=== PATIENT | female | born 1980 | race Caucasian/White ===

== ENCOUNTER 2016-12-23 11:33 | Emergency (ER) | payer OTHER ==
[~2016-12-23] VITALS: Ht 157.5 cm; Wt 104.5 kg
[~2016-12-23 11:33] MED LIST: AMIT10TA6 PO; ARIP1TAB5 PO; DEPO150I IM; ESCI20TA PO; FLUT1SPR5 EACH NARE; KLON2TAB PO; LURA40 PO; PHEN37.54 PO; TIZA4TAB PO
[2016-12-23 11:51] VITALS: BP 125/77; PULSE 87; RESP 18; TEMP 97.8; O2SAT 98
[2016-12-23] MEDS ORDERED: LEXA20TA PO (11:51)
[2016-12-23] MEDS ORDERED: ABIL15TA2 PO (11:51)
[2016-12-23] MEDS ORDERED: ADDE30TA PO (11:51)
[2016-12-23] MEDS ORDERED: XANA2TAB2 PO (11:51)
[2016-12-23] MEDS ORDERED: ADDE15TA PO (11:51)
--- NOTE | 2016-12-23 12:51 | PD ---
HPI Chief Complaint: Medication Refill Request Time Seen by Provider: 12:29 Travel History International Travel<30 days: No Contact w/Intl Traveler<30days: No Traveled to known affect area: No History of Present Illness HPI 36-year-old female presents to the emergency room crusting medication refills for Adderall and Lexapro. Patient states she ran out of her medications yesterday. She is also running out of Abilify and Xanax but states she can make them last until she can get in to see her psychiatrist. Patient recently changed insurances and her new insurance is not accepted at her old primary care physician's office. She was going to [facility] but they do not prescribe narcotics and referred her to a psychiatrist who charges $200 per visit. Patient states she cannot afford that. She called a psychiatrist in the area who accepts her insurance (Dr. Farmer) and the earliest they can get her in is January 01. She was told by their office to come to the emergency room. She states if she is not taking her medication she cannot function and is concerned that she will be [place] acted. She has been on them for 17-20 years. 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 Space doses at least 4 to 6 hours if more than once/day dosing. Adderall (Amphetamine-Dextroamphetamine) 30 Mg Tab 30 Mg PO DAILY Avoid late evening doses. Space doses at least 4 to 6 hours if more than once/day dosing. Lexapro (Escitalopram Oxalate) 20 Mg Tab 20 Mg PO DAILY Review of Systems Except as stated in HPI: all other systems reviewed are Neg Physical Exam Narrative GENERAL: Well-nourished, well-developed female in no acute distress. Afebrile. Ambulatory. SKIN: Focused skin assessment warm/dry. HEAD: Normocephalic. EYES: No scleral icterus. No injection or drainage. NECK: Supple, trachea midline. No JVD or lymphadenopathy. CARDIOVASCULAR: Regular rate and rhythm without murmurs, gallops, or rubs. RESPIRATORY: Breath sounds equal bilaterally. No accessory muscle use. PSYCHIATRIC: No delusional thought processes. No hallucinations. Normal affect. Stable mood. Data Data Last Documented VS Vital Signs Date Time Temp Pulse Resp B/P Pulse Ox O2 Delivery O2 Flow Rate FiO2 12/23/16 11:51 97.8 87 18 125/77 98 MDM Medical Decision Making Medical Screen Exam Complete: Yes Emergency Medical Condition: No Medical Record Reviewed: Yes Differential Diagnosis Medication refill, bipolar disorder, mood disorder, depression Narrative Course 36-year-old female presents to the emergency room requesting medication refill of Adderall and Lexapro. States she also needs Abilify and Xanax but states she can go without those medications until she can get into see her psychiatrist. The earliest they can take her is January 01. Patient appears legitimate and there is no concern for drug-seeking behavior however she was informed that it is against emergency room policy to prescribe refill narcotic medications. She was offered refill for prescription of Lexapro but became angry and left. A medical screening exam was performed: At the time of evaluation the presenting medical condition was determined not to be of an emergent nature. The patient was given the option of receiving additional care, such as refill of Lexapro, but declined. Patient was given options for additional community resources from which to obtain care. The Patient Has Been advised to seek medical attention for their presenting complaint. The patient has been advised to return to the ER at any time if an emergent condition develops. Diagnosis Primary Impression: Encounter for medical screening examination Disposition: 01 DISCHARGE HOME Condition: Stable Sharon Suarez Dec 23, 2016 12:51
== END 2016-12-23 12:44 | disposition left against medical advice (07) ==
LOC: PHEFT 11:33
DX: F31.9 Bipolar disorder, unspecified (principal); Z87.19 Personal history of other diseases of the digestive system; Z72.0 Tobacco use; Z79.899 Other long term (current) drug therapy
CPT/HCPCS: 99281

== ENCOUNTER 2017-06-22 11:28 | Emergency (ER) | payer OTHER ==
[~2017-06-22] VITALS: Ht 157.5 cm; Wt 100.0 kg
[~2017-06-22 11:28] MED LIST changes: +ABIL15TA3 PO; +ADDE15TA PO; +ADDE30TA PO; -AMIT10TA6 PO; -ARIP1TAB5 PO; +CLON2TAB PO; -DEPO150I IM; -ESCI20TA PO; -FLUT1SPR5 EACH NARE; -KLON2TAB PO; +LEXA20TA PO; -LURA40 PO; -PHEN37.54 PO; -TIZA4TAB PO
[2017-06-22 11:35] VITALS: BP 116/64; PULSE 64; RESP 16; TEMP 97.8; O2SAT 100
[2017-06-22] MEDS ORDERED: LIDOCAINE HCL 5% OINT 37 GM TUBE TOPICAL ONE (11:45)
[2017-06-22] MEDS ORDERED: TOPA50TA7 PO (11:46)
[2017-06-22] MEDS ORDERED: ALPR2TAB3 PO (11:46)
[2017-06-22] MEDS ORDERED: LIDOCAINE 4% CREAM 5 GM TUBE TOPICAL ONE ×2 (12:00→13:30)
--- NOTE | 2017-06-22 12:03 | PD ---
HPI Chief Complaint: GI Complaint Time Seen by Provider: 11:40 Travel History International Travel<30 days: No Contact w/Intl Traveler<30days: No Traveled to known affect area: No History of Present Illness HPI This is a 36-year-old female who presents to the emergency department feeling like she can't have a bowel movement. She feels like she has stool stuck at her rectum, constant, severe, associated with pain and some bleeding. She has some lower abdominal cramping and some back pain. She says in the past she struggled with constipation and has had to take lactulose. She denies any vomiting. She has had a but that's her only prior abdominal surgery. PFSH Past Medical History Bipolar Disorder: Yes Diminished Hearing: No GERD: Yes Psychiatric: Yes Immunizations Current: Yes Tetanus Vaccination: Unknown Influenza Vaccination: No ?: Not LMP: 05-25-17 Past Surgical History Section: Yes Social History Alcohol Use: No Tobacco Use: Yes (1 pk) Substance Use: Yes (denies today) Allergies-Medications (Allergen,Severity, Reaction): Coded Allergies: *MDRO Multi-Drug Resistant Organism (Unverified Allergy, Unknown, 12/23/16) Acinetobacter lwoffii 2013 Reported Meds & Prescriptions Reported Meds & Active Scripts Active Reported Topamax (Topiramate) 50 Mg Tab 50 Mg PO DAILY Alprazolam 2 Mg Tab 2 Mg PO BID Abilify (Aripiprazole) 15 Mg Tab 15 Mg PO DAILY Adderall (Amphetamine-Dextroamphetamine) 15 Mg Tab 15 Mg PO HS Avoid late evening doses. Space doses at least 4 to 6 hours if more than once/day dosing. Adderall (Amphetamine-Dextroamphetamine) 30 Mg Tab 30 Mg PO DAILY Avoid late evening doses. Space doses at least 4 to 6 hours if more than once/day dosing. Lexapro (Escitalopram Oxalate) 20 Mg Tab 20 Mg PO DAILY Review of Systems Except as stated in HPI: all other systems reviewed are Neg Physical Exam Narrative GENERAL:Well appearing, no acute distress SKIN: Focused skin assessment warm and dry. HEAD: Atraumatic. Normocephalic. EYES: Pupils equal and round. No injection or drainage. ENT: Moist mucous membranes NECK: Trachea midline. CARDIOVASCULAR: Regular rate and rhythm. No murmur appreciated. RESPIRATORY: Clear to auscultation. Breath sounds equal bilaterally. GASTROINTESTINAL: Abdomen soft, non-tender, nondistended. External and internal hemorrhoids evident on exam. Large fecal mass appreciated in the rectum. MUSCULOSKELETAL: No obvious deformities. NEUROLOGICAL: Awake and alert. No obvious cranial nerve deficits. Moving all extremities. PSYCHIATRIC: Appropriate mood and affect; insight and judgment normal. Data Data Last Documented VS Vital Signs Date Time Temp Pulse Resp B/P (MAP) Pulse Ox O2 Delivery O2 Flow Rate FiO2 06/22/17 13:09 88 20 164/82 (109) 99 Room Air 06/22/17 11:35 97.8 Orders Orders Lidocaine 4% Cream (L-M-X 4 Cream) (06/22/17 12:00) Mineral Oil Enema (Fleet Mineral Oil Cathy (06/22/17 13:30) Bisacodyl Supp (Dulcolax Supp) (06/22/17 13:30) Lidocaine 4% Cream (L-M-X 4 Cream) (06/22/17 13:30) MDM Medical Decision Making Medical Screen Exam Complete: Yes Emergency Medical Condition: Yes Differential Diagnosis Fecal impaction, constipation, bowel obstruction Narrative Course This is a 36-year-old female who presents to the emergency department with a fecal impaction. Patient is very anxious. I attempted a manual disimpaction. I was able to remove some stool but the patient did not tolerate it well. She attempted to have a bowel movement in the emergency department but said she couldn't do it. I don't think she has any signs of obstruction. I think the patient will be able to pass this on her own. Patient wants to go home and doesn't want any more intervention. She will be given an enema, suppository and more topical lidocaine to manage this at home. Patient will be discharged. Procedures Procedure Narrative A fecal disimpaction was performed. A small amount of stool was removed digitally from the rectum following application of topical lidocaine. Diagnosis Primary Impression: Fecal impaction in rectum Patient Instructions: General Instructions Additional Instructions: If you develop severe or worsening abdominal pain, fever>100.4, persistent vomiting or inability to eat or drink return to the emergency department immediately. Follow up with your primary care physician in 1-2 days if you're not improved. Scripts Polyethylene Glycol 3350 Powder (Miralax Powder) 17 Gm Powd 17 GM PO DAILY for Constipation, #1 CAN 0 Refills Mix and dissolve one measuring cap-ful (17 grams) in water or juice. Prov: Janny Pfeiffer MD 06/22/17 Disposition: 01 DISCHARGE HOME Condition: Stable Janny Pfeiffer MD Jun 22, 2017 12:03
[2017-06-22 13:09] VITALS: BP 164/82; PULSE 88; RESP 20; O2SAT 99
[2017-06-22] MEDS ORDERED: MINERAL OIL ENEMA 118 ML BTL RECTAL ONE (13:30)
[2017-06-22] MEDS ORDERED: BISACODYL 10 MG SUPP RECTAL ONE (13:30)
[2017-06-22] MEDS ORDERED: MIRA3350 PO (13:30)
== END 2017-06-22 13:45 | disposition home or self-care (01) ==
LOC: PHED 11:28
DX: K56.41 Fecal impaction (principal); K21.9 Gastro-esophageal reflux disease without esophagitis; F17.210 Nicotine dependence, cigarettes, uncomplicated
CPT/HCPCS: 99283

== ENCOUNTER 2017-11-17 23:45 | Emergency (ER) | payer OTHER ==
[~2017-11-17 23:45] MED LIST changes: +ALPR2TAB3 PO; -CLON2TAB PO; +MIRA3350 PO; +TOPA50TA7 PO
[2017-11-18 00:20] VITALS: BP 109/55; PULSE 79; RESP 18; TEMP 98.2; O2SAT 100
[2017-11-18] MEDS ORDERED: CLIN300C5 PO (03:27)
[2017-11-18] MEDS ORDERED: BACT800T5 PO (03:27)
--- NOTE | 2017-11-18 03:29 | PD ---
HPI Chief Complaint: Skin Problem Time Seen by Provider: 03:18 Travel History International Travel<30 days: No Contact w/Intl Traveler<30days: No Traveled to known affect area: No History of Present Illness HPI Examined in the presence of a female nurse. 36-year-old female presents for evaluation of area of redness and pain to the lateral aspect of the right thigh. Symptoms started 2-3 days ago spontaneously. Pain is aching, constant, worse with palpation. Denies any fevers or chills. She reports that she has a history of cellulitis secondary to MRSA in the past and this feels similar. No other complaints. PFSH Past Medical History Bipolar Disorder: Yes Diminished Hearing: No GERD: Yes Psychiatric: Yes Immunizations Current: Yes ?: Not LMP: 10/31/17 Past Surgical History Section: Yes Social History Alcohol Use: No Tobacco Use: Yes (1 pk) Substance Use: Yes (denies today) Allergies-Medications (Allergen,Severity, Reaction): Coded Allergies: *MDRO Multi-Drug Resistant Organism (Unverified Allergy, Unknown, 11/18/17) Acinetobacter lwoffii 2013 Reported Meds & Prescriptions Reported Meds & Active Scripts Active Miralax Powder (Polyethylene Glycol 3350 Powder) 17 Gm Powd 17 Gm PO DAILY Mix and dissolve one measuring cap-ful (17 grams) in water or juice. Reported Topamax (Topiramate) 50 Mg Tab 50 Mg PO DAILY Alprazolam 2 Mg Tab 2 Mg PO BID Abilify (Aripiprazole) 15 Mg Tab 15 Mg PO DAILY Adderall (Amphetamine-Dextroamphetamine) 15 Mg Tab 15 Mg PO HS Avoid late evening doses. Space doses at least 4 to 6 hours if more than once/day dosing. Adderall (Amphetamine-Dextroamphetamine) 30 Mg Tab 30 Mg PO DAILY Avoid late evening doses. Space doses at least 4 to 6 hours if more than once/day dosing. Lexapro (Escitalopram Oxalate) 20 Mg Tab 20 Mg PO DAILY Review of Systems Except as stated in HPI: all other systems reviewed are Neg Physical Exam Narrative GENERAL: Well-developed well-nourished female no acute distress SKIN: Warm and dry. There is an approximately 7 cm in diameter erythema with some central induration on the lateral aspect of the right thigh. There is no fluctuance or drainage. HEAD: Atraumatic. Normocephalic. EYES: Pupils equal and round. No scleral icterus. No injection or drainage. ENT: No nasal bleeding or discharge. Mucous membranes pink and moist. NECK: Trachea midline. No JVD. CARDIOVASCULAR: Regular rate and rhythm. No murmur appreciated. RESPIRATORY: No accessory muscle use. Clear to auscultation. Breath sounds equal bilaterally. GASTROINTESTINAL: Abdomen soft, non-tender, nondistended. Hepatic and splenic margins not palpable. Data Data Last Documented VS Vital Signs Date Time Temp Pulse Resp B/P (MAP) Pulse Ox O2 Delivery O2 Flow Rate FiO2 11/18/17 00:20 98.2 79 18 109/55 (73) 100 Orders Orders Clindamycin (Cleocin) (11/18/17 03:30) Sulfamet-Trimeth Ds 800-160 Mg (Bactrim (11/18/17 03:30) Ed Discharge Order (11/18/17 03:23) [facility] Medical Decision Making Medical Screen Exam Complete: Yes Emergency Medical Condition: Yes Medical Record Reviewed: Yes Differential Diagnosis Cellulitis, abscess, erysipelas, infected cyst Narrative Course Examination is consistent with cellulitis to the right leg. History of MRSA in the past. Patient will be treated with clindamycin and Bactrim. Discussed signs and symptoms that would warrant returning to the emergency room. Stable for discharge. Diagnosis Primary Impression: Cellulitis of right leg Additional Instructions: Medication as prescribed. Warm compresses several times a day 15 minutes at a time. Return for any new or worsening symptoms. Med/Other Pt SpecificInfo: Prescription(s) given Scripts Sulfamethoxazole-Trimethoprim (Bactrim DS) 800-160 Mg Tab 1 TAB PO BID for Infection, #20 TAB 0 Refills Prov: Marisabel Sims MD 11/18/17 Clindamycin (Clindamycin) 300 Mg Cap 300 MG PO TID for Infection for 10 Days, CAP 0 Refills Prov: Marisabel Sims MD 11/18/17 Disposition: 01 DISCHARGE HOME Condition: Stable Aj Rivera Nov 18, 2017 03:29
[2017-11-18] MEDS ORDERED: SULFAMETHOXAZOLE-TRIMETHOPRIM DS 800-160 MG TAB PO ONE (03:30)
[2017-11-18] MEDS ORDERED: CLINDAMYCIN 150 MG CAP PO ONE (03:30)
[2017-11-18] MEDS ORDERED: IBUPROFEN 800 MG TAB PO ONE (03:45)
== END 2017-11-18 03:43 | disposition home or self-care (01) ==
LOC: NEPD 23:45
DX: L03.115 Cellulitis of right lower limb (principal); F31.9 Bipolar disorder, unspecified; Z72.0 Tobacco use
CPT/HCPCS: 99283